=== PATIENT | male | born 1985 | race Caucasian/White ===

== ENCOUNTER 2018-03-06 17:03 | Emergency (ER) | payer OTHER ==
[2018-03-06 17:10] VITALS: BP 130/81; PULSE 80; RESP 20; TEMP 98.4; O2SAT 98
--- NOTE | 2018-03-06 17:55 | C.PDOC ---
History Of Present Illness CC "left ankle pain" HPI: Patient is a 32 year old male who presents for left ankle pain and swelling after he missed a step and inverted his left ankle at 2pm today. He states he is able to bear weight on it. He did not apply ice to the area. He has never injured his left ankle before. He is currently being treated for a tooth i nfection and has been on Amoxicillin and Ibuprofen since Friday. Last took Ibuprofen at 10am this morning, has not taken anything for his left ankle. PMH: none PSH: hemorrhoidectomy Social: denies smoking, alcohol or drug use. Works as a petrol tanker driver Home meds: Amoxicillin, Ibuprofen Allergies: NKDA Time Seen by Provider: 03/06/18 17:39 Chief Complaint (Nursing): Lower Extremity Problem/Injury Past Medical History Vital Signs: Last Vital Signs Temp 98.4 F 03/06/18 17:10 Pulse 80 03/06/18 17:10 Resp 20 03/06/18 17:10 BP 130/81 03/06/18 17:10 Pulse Ox 98 03/06/18 17:10 - [facility] CLOSURE SKIN & SUBCUTANEOUS NEC (03/22/14) Family History: States: Unknown Family Hx - Social History Hx Alcohol Use: No Hx Substance Use: No - Immunization History Hx Tetanus Toxoid Vaccination: Yes ([id number]) Physical Exam - Physical Exam Appears: Well, No Acute Distress Skin: Warm, Dry Head: Atraumatic, Normacephalic Eye(s): bilateral: PERRL, EOMI Ear(s): Bilateral: Normal Nose: Normal Throat: Normal Chest: Symmetrical Cardiovascular: Rhythm Regular, No Friction Rub, No Murmur, No JVD Respiratory: Normal Breath Sounds, No Rales, No Rhonchi, No Stridor, No Wheezing, No Plerual Rub Gastrointestinal/Abdominal: Bowel Sounds, Soft Extremity: Left: Limited ROM To Joint, Other (Swelling and tenderness to left lateral malleolus, good distal pulses. Good plantarflexion. Limited dorsiflexion secondary to swelling. Reproducible pain with inversion of left ankle. Able to move digits well. ) ED Course And Treatment O2 Sat by Pulse Oximetry: 98 - Other Rad Left ankle X-Ray: Viewed By Me Interpretation: no acute fracture Medical Decision Making Medical Decision Making: X ray was negative for fracture. Aircast applied, given crutches. Patient advised to take Motrin over the counter for pain. Disposition - Disposition Referrals: Aayush Dior MD [Staff Provider] - Disposition Time: 18:44 Condition: STABLE Instructions: Ankle Sprain (DC) Forms: [facility] (Swiss), General Discharge Instructions - Clinical Impression Clinical Impression: Ankle sprain
--- NOTE | 2018-03-07 09:21 | RAD ---
Date of service: 03/06/2018 PROCEDURE: Left Ankle Radiographs. HISTORY: injury COMPARISON: None available. FINDINGS: BONES: Bone alignment and mineralization are normal. There is no acute displaced fracture or bone destruction. JOINTS: Normal. Ankle mortise maintained. Talar dome intact SOFT TISSUES: There is moderate anterior and lateral soft tissue swelling. OTHER FINDINGS: None. IMPRESSION: No acute fracture or dislocation. Moderate anterior and lateral soft tissue swelling.
== END 2018-03-06 19:09 | disposition home or self-care (01) ==
LOC: C.ER 17:03
DX: S93.402A Sprain of unspecified ligament of left ankle, initial encounter (principal); X50.0XXA Overexertion from strenuous movement or load, initial encounter